=== PATIENT | male | born 1960 | race Caucasian/White ===

== ENCOUNTER → 2017-01-03 | Outpatient (CLI) | payer OTHER ==
[~2017-01-03] MED LIST: ACETAMINOPHEN325 M1 PO; AUGMENTIN 875875 M1 PO; CYMBALTA60 MG PO; HYDROCODON-ACE1 EAC7 PO; IRON325 PO; VERAPAMIL SR 1120 M1 PO
== END ==
LOC: ULTRA 08:05
DX: N28.89 Other specified disorders of kidney and ureter (principal)